=== PATIENT | male | born 1965 | race Caucasian/White ===

== ENCOUNTER → 2020-10-25 | Outpatient (CLI) | payer OTHER ==
[~2020-10-25] MED LIST: COZAAR50 MG PO; MOBIC7.5 MG PO; SENNA-DOCUSATE1 EACH PO
== END ==
LOC: EXRD 10:46
DX: M25.561 Pain in right knee (principal); M25.562 Pain in left knee; M89.8X5 Other specified disorders of bone, thigh
CPT/HCPCS: 73564

== ENCOUNTER → 2021-04-18 | Outpatient (CLI) | payer OTHER | LOC: KOH-I 09:51 | DX: R10.33 Periumbilical pain (principal) | CPT/HCPCS: 74150 ==

== ENCOUNTER → 2021-09-26 | Day surgery (SDC) | payer OTHER ==
[~2021-09-26] MED LIST changes: +CRESTOR10 MG PO; +FLOMAX 0.4 MG0.4 MG PO; +NORVASC5 MG PO; +OMEPRAZOLE20 MG PO; +ZYLOPRIM 100 M100 MG PO
== END | disposition home or self-care (01) ==
LOC: OR 06:09
DX: K92.1 Melena (principal); K29.80 Duodenitis without bleeding; K57.30 Diverticulosis of large intestine without perforation or abscess without bleeding; M10.9 Gout, unspecified; I10 Essential (primary) hypertension; E78.5 Hyperlipidemia, unspecified; Z20.822 Contact with and (suspected) exposure to COVID-19
CPT/HCPCS: J2001; J2704; J3010; J7120